=== PATIENT | male | born 1985 | race African-American/Black ===

== ENCOUNTER 2021-05-16 15:00 | Inpatient (IN) | payer MEDICAID, OTHER ==
[~2021-05-16] VITALS: Ht 185.4 cm; Wt 76.9 kg
[2021-05-16] MEDS ORDERED: bumex (15:19)
[2021-05-16] MEDS ORDERED: xarelto (15:19)
[2021-05-16] MEDS ORDERED: ASPIRIN 81MG TABLET PO ONE (16:15)
[2021-05-16] MEDS ORDERED: FUROSEMIDE 40MG/4ML VIAL IV ONE (16:15)
[2021-05-16] MEDS ORDERED: NITROGLYCERIN OINT 1GM/INCH UDPKT TD ONE (16:15)
[2021-05-16 16:17] LABS: BASOPHILS % 1.1 % (0.0-2.0); EOSINOPHILS % 0.5 % (0.0-5.0); HEMATOCRIT. 32.6 % (42.0-52.0); HEMOGLOBIN. 10.8 g/dL (14.0-18.0); LYMPHOCYTES % 24.2 % (20.0-50.0); MEAN CORPUSCULAR HEMOGLOBIN 30.5 pg (28.0-32.0); MEAN CORPUSCULAR VOLUME 92.2 fL (80.0-94.0); MEAN PLATELET VOLUME 7.1 fl (7.4-10.4); MONOCYTES % 7.7 % (2.0-8.0); NEUTROPHILS % 66.5 % (40.0-76.0); PLATELET 263 x1000/uL (130-400); RED BLOOD CELL COUNT 3.54 mill/uL (4.7-6.1); RED CELL DISTRIBUTION WIDTH 19.9 % (11.6-14.6)
[2021-05-16 16:24] LABS: CHLORIDE 93 mEq/L (98-107)
[2021-05-16 16:28] LABS: INR 1.8; PARTIAL THROMBOPLASTIN TIME 32.8 sec (23.4-31.0); PROTHROMBIN TIME 18.8 sec (9.6-11.0)
[2021-05-16] MEDS ORDERED: MORPHINE SULFATE 4 MG/ML CPJ (NOT FOR IM USE) IV STA (16:46)
[2021-05-16] MEDS ORDERED: ONDANSETRON HCL 4MG/2ML INJ IV STA (16:46)
[2021-05-16] MEDS ORDERED: MORPHINE SULFATE 2 MG/ML CPJ (NOT FOR IM USE) IV STA (16:51)
[2021-05-16] MEDS ORDERED: SODIUM CHLORIDE 0.9% 1,000 ML IV ONE (17:00)
[2021-05-16] MEDS ORDERED: POTASSIUM CHLORIDE 20MEQ TABLET SR PO ONE (18:00)
[2021-05-16] MEDS ORDERED: ENOXAPARIN 80MG/0.8ML SYR SUBCUT ONE (18:00)
[2021-05-16] MEDS ORDERED: CLONIDINE 0.1MG TABLET PO PRN (18:45)
[2021-05-16] MEDS ORDERED: IPRATROPIUM/ALBUTEROL 0.5-3(2.5)MG/3ML NEB HHN PRN (18:45)
[2021-05-16] MEDS ORDERED: ACETAMINOPHEN 325MG TABLET PO PRN (18:45)
[2021-05-16] MEDS ORDERED: IOHEXOL-350 100 ML BOTTLE ONE (19:16)
[2021-05-16] MEDS ORDERED: AZITHROMYCIN 500MG/250ML 250 ML IV ONE (19:45)
[2021-05-16] MEDS ORDERED: SODIUM CHLORIDE 0.9% 1000ML BAG (SEPSIS BOLUS) IV ONE (19:45)
[2021-05-16] MEDS ORDERED: CEFTRIAXONE 1 G PREMIX 50 ML IV ONE (19:45)
[2021-05-16] MEDS: RIVAROXABAN 15 MG TABLET PO SCH (20:16)
[2021-05-16 21:09] VITALS: BP 90/68
[2021-05-16] MEDS: ONDANSETRON HCL 4MG/2ML INJ IV PRN (21:26)
[2021-05-16] MEDS ORDERED: HYDROCODONE/ACETAMINOPHEN 5/325MG TABLET PO PRN (21:30)
[2021-05-16] MEDS ORDERED: NALOXONE HCL 0.4MG/ML VIAL IV PRN (21:45)
[2021-05-17 00:30] VITALS: BP 107/75
[2021-05-17] MEDS ORDERED: NALOXONE HCL 0.4MG/ML VIAL IV PRN (01:00)
[2021-05-17] MEDS: HYDROCODONE/ACETAMINOPHEN 5/325MG TABLET PO PRN ×2 (01:59→07:29)
[2021-05-17 04:00] VITALS: BP 101/77
[2021-05-17 07:16] LABS: CHLORIDE 96 mEq/L (98-107)
[2021-05-17 07:18] LABS: BASOPHILS % 0.7 % (0.0-2.0); EOSINOPHILS % 0.1 % (0.0-5.0); HEMATOCRIT. 35.2 % (42.0-52.0); HEMOGLOBIN. 11.3 g/dL (14.0-18.0); LYMPHOCYTES % 27.7 % (20.0-50.0); MEAN CORPUSCULAR HEMOGLOBIN 30.2 pg (28.0-32.0); MEAN CORPUSCULAR VOLUME 94.1 fL (80.0-94.0); MEAN PLATELET VOLUME 7.6 fl (7.4-10.4); MONOCYTES % 6.6 % (2.0-8.0); NEUTROPHILS % 64.9 % (40.0-76.0); PLATELET 258 x1000/uL (130-400); RED BLOOD CELL COUNT 3.74 mill/uL (4.7-6.1); RED CELL DISTRIBUTION WIDTH 19.9 % (11.6-14.6)
[2021-05-17 07:30] LABS: HDL CHOLESTEROL 33 mg/dL (40-59); LDL CHOLESTEROL 38 mg/dL (5-100)
[2021-05-17 08:39] LABS: CLARITY URINE CLEAR (CLEAR); COLOR URINE YELLOW (YELLOW); KETONES URINE NEGATIVE (NEGATIVE); LEUKOCYTE ESTERASE URINE NEGATIVE (NEGATIVE); NITRITE URINE NEGATIVE (NEGATIVE); OCCULT BLOOD URINE NEGATIVE (NEGATIVE); PH URINE 5.5 (4.5-8.0); PROTEIN URINE 1+ (NEGATIVE); SPECIFIC GRAVITY URINE 1.042 (1.005-1.030)
[2021-05-17] MEDS ORDERED: FUROSEMIDE 40MG/4ML VIAL IV SCH (09:00)
[2021-05-17] MEDS: RIVAROXABAN 15 MG TABLET PO SCH ×2 (09:11→17:31)
[2021-05-17 12:00] VITALS: BP 106/80
[2021-05-17] MEDS ORDERED: BUMETANIDE 1MG/4ML VIAL IV SCH (15:00)
[2021-05-17] MEDS: MORPHINE SULFATE 2 MG/ML CPJ (NOT FOR IM USE) IV PRN ×2 (15:10→20:09)
[2021-05-17] MEDS ORDERED: CHOL-36 PO (15:34)
[2021-05-17] MEDS ORDERED: MAGN400T26 PO (15:34)
[2021-05-17] MEDS ORDERED: TOPUD PO (15:34)
[2021-05-17] MEDS ORDERED: IVAB7.5T PO (15:34)
[2021-05-17] MEDS ORDERED: POTA-9 PO (15:34)
[2021-05-17] MEDS ORDERED: DIVA500T3 PO (15:34)
[2021-05-17] MEDS ORDERED: BENZ100C86 PO (15:34)
[2021-05-17] MEDS ORDERED: XAR15 PO (15:34)
[2021-05-17] MEDS ORDERED: BICT1TAB PO (15:34)
[2021-05-17] MEDS ORDERED: MULT-1146 PO (15:34)
[2021-05-17] MEDS ORDERED: BUPR-46 PO (15:34)
[2021-05-17] MEDS ORDERED: LISI-186 PO (15:34)
[2021-05-17] MEDS ORDERED: RIVA20TA PO (15:34)
[2021-05-17] MEDS ORDERED: BUME2TAB34 PO (15:34)
[2021-05-17] MEDS ORDERED: SPIR25TA6 PO (15:34)
[2021-05-17] MEDS ORDERED: FERR325T6 PO (15:34)
[2021-05-17 16:00] VITALS: BP 108/80
[2021-05-17] MEDS ORDERED: AZITHROMYCIN 500 MG in DEXT 5% WATER 250 ML IV SCH (17:00)
[2021-05-17] MEDS: SPIRONOLACTONE 25MG TABLET PO SCH (18:23)
[2021-05-17] MEDS: ATORVASTATIN CALCIUM 40MG TABLET PO SCH (20:09)
[2021-05-17] MEDS: ONDANSETRON HCL 4MG/2ML INJ IV PRN (20:19)
[2021-05-17 20:36] VITALS: BP 111/80
[2021-05-17] MEDS: CEFTRIAXONE 1,000 MG in DEXTROSE 5% WATER 50 ML IV SCH (23:40)
[2021-05-18] VITALS: BP 102/77
[2021-05-18] MEDS: MORPHINE SULFATE 2 MG/ML CPJ (NOT FOR IM USE) IV PRN ×6 (01:06→23:03)
[2021-05-18] MEDS ORDERED: APIX5TAB MT (03:08)
[2021-05-18] MEDS: ONDANSETRON HCL 4MG/2ML INJ IV PRN ×2 (03:15→10:02)
[2021-05-18] MEDS ORDERED: *PATIENT'S OWN MEDICATION STORAGE XX SCH (03:30)
[2021-05-18 04:00] VITALS: BP 103/76
[2021-05-18 08:00] VITALS: BP 106/72
[2021-05-18] MEDS: SPIRONOLACTONE 25MG TABLET PO SCH (08:35)
[2021-05-18] MEDS: ASPIRIN 81MG TABLET PO SCH (08:35)
[2021-05-18] MEDS: LISINOPRIL 2.5MG TABLET PO SCH (09:00)
[2021-05-18] MEDS ORDERED: BUMETANIDE 1MG/4ML VIAL IV SCH ×2 (09:00→18:00)
[2021-05-18] MEDS: METOPROLOL TARTRATE 25MG TABLET PO SCH ×2 (09:00→20:16)
[2021-05-18] MEDS: BUMETANIDE 1MG/4ML VIAL IV SCH ×2 (09:46→17:31)
[2021-05-18] MEDS: ENOXAPARIN 80MG/0.8ML SYR SUBCUT SCH ×2 (09:48→21:44)
[2021-05-18 12:13] VITALS: BP 102/76
[2021-05-18] MEDS: AZITHROMYCIN 500 MG TABLET PO SCH (14:44)
[2021-05-18 16:20] VITALS: BP 104/74
[2021-05-18] MEDS: CEFTRIAXONE 1,000 MG in DEXTROSE 5% WATER 50 ML IV SCH (17:30)
[2021-05-18 20:19] VITALS: BP 107/74
[2021-05-18] MEDS: ATORVASTATIN CALCIUM 40MG TABLET PO SCH (21:44)
[2021-05-19] VITALS (7 sets, daily range): BP systolic 100–114; BP diastolic 69–83
[2021-05-19 00:43] LABS: BASOPHILS % 0.6 % (0.0-2.0); EOSINOPHILS % 0.2 % (0.0-5.0); HEMATOCRIT. 34.9 % (42.0-52.0); HEMOGLOBIN. 11.8 g/dL (14.0-18.0); LYMPHOCYTES % 27.4 % (20.0-50.0); MEAN CORPUSCULAR HEMOGLOBIN 30.9 pg (28.0-32.0); MEAN CORPUSCULAR VOLUME 91.7 fL (80.0-94.0); MEAN PLATELET VOLUME 7.9 fl (7.4-10.4); MONOCYTES % 8.3 % (2.0-8.0); NEUTROPHILS % 63.5 % (40.0-76.0); PLATELET 297 x1000/uL (130-400); RED CELL DISTRIBUTION WIDTH 19.3 % (11.6-14.6)
[2021-05-19 00:54] LABS: PROTHROMBIN TIME 41.3 sec (9.6-11.0)
[2021-05-19 01:00] LABS: CHLORIDE 94 mEq/L (98-107)
[2021-05-19 01:22] LABS: INR 4.3
[2021-05-19] MEDS: MORPHINE SULFATE 2 MG/ML CPJ (NOT FOR IM USE) IV PRN ×4 (03:08→23:10)
[2021-05-19] MEDS: DIPHENHYDRAMINE 50MG/ML VIAL IV PRN (03:35)
[2021-05-19] MEDS: BUMETANIDE 1MG/4ML VIAL IV SCH ×2 (06:25→17:25)
[2021-05-19] MEDS: ASPIRIN 81MG TABLET PO SCH (08:41)
[2021-05-19] MEDS: LISINOPRIL 2.5MG TABLET PO SCH (08:41)
[2021-05-19] MEDS: SPIRONOLACTONE 25MG TABLET PO SCH (08:41)
[2021-05-19] MEDS: METOPROLOL TARTRATE 25MG TABLET PO SCH ×2 (08:42→20:33)
[2021-05-19] MEDS: ENOXAPARIN 80MG/0.8ML SYR SUBCUT SCH (08:42)
[2021-05-19] MEDS: ONDANSETRON HCL 4MG/2ML INJ IV PRN ×2 (08:54→19:26)
[2021-05-19] MEDS: AZITHROMYCIN 500 MG TABLET PO SCH (10:38)
[2021-05-19] MEDS ORDERED: METOLAZONE 5MG TABLET PO NR (12:30)
[2021-05-19] MEDS ORDERED: BUMETANIDE 1MG/4ML VIAL IV NR (13:00)
[2021-05-19] MEDS: IVABRADINE 7.5 MG PO SCH ×2 (15:08→20:48)
[2021-05-19] MEDS: BIKTARVY PO SCH (15:08)
[2021-05-19] MEDS: CEFTRIAXONE 1,000 MG in DEXTROSE 5% WATER 50 ML IV SCH (17:24)
[2021-05-19 19:44] LABS: CHLORIDE 94 mEq/L (98-107)
[2021-05-19 19:47] LABS: PROTHROMBIN TIME 40.1 sec (9.6-11.0)
[2021-05-19 21:08] LABS: INR 4.2
[2021-05-20] VITALS (7 sets, daily range): BP systolic 100–105; BP diastolic 65–78
[2021-05-20] MEDS: MORPHINE SULFATE 2 MG/ML CPJ (NOT FOR IM USE) IV PRN ×4 (05:02→20:36)
[2021-05-20] MEDS: BUMETANIDE 1MG/4ML VIAL IV SCH ×2 (05:02→17:50)
[2021-05-20 06:07] LABS: INR 3.4
[2021-05-20 06:14] LABS: CHLORIDE 94 mEq/L (98-107)
[2021-05-20] MEDS: METOPROLOL TARTRATE 25MG TABLET PO SCH ×2 (09:00→20:30)
[2021-05-20] MEDS: LISINOPRIL 2.5MG TABLET PO SCH (09:00)
[2021-05-20] MEDS: SPIRONOLACTONE 25MG TABLET PO SCH (09:27)
[2021-05-20] MEDS: IVABRADINE 7.5 MG PO SCH ×2 (09:27→17:51)
[2021-05-20] MEDS: BIKTARVY PO SCH (09:27)
[2021-05-20] MEDS: AZITHROMYCIN 500 MG TABLET PO SCH (10:17)
[2021-05-20] MEDS ORDERED: POTASSIUM CHLORIDE 20MEQ TABLET SR PO NR (11:30)
[2021-05-20] MEDS: CEFTRIAXONE 1,000 MG in DEXTROSE 5% WATER 50 ML IV SCH (17:51)
[2021-05-20] MEDS: ENOXAPARIN 80MG/0.8ML SYR SUBCUT SCH ×2 (20:18→22:24)
[2021-05-21] VITALS: BP 103/72
[2021-05-21] MEDS: MORPHINE SULFATE 2 MG/ML CPJ (NOT FOR IM USE) IV PRN ×5 (00:41→22:21)
[2021-05-21 04:00] VITALS: BP 100/74
[2021-05-21 06:01] LABS: D-DIMER 4.04 mg/L FEU (<0.50); PARTIAL THROMBOPLASTIN TIME 34.1 sec (23.4-31.0)
[2021-05-21] MEDS: BUMETANIDE 1MG/4ML VIAL IV SCH ×2 (06:04→17:38)
[2021-05-21 08:00] VITALS: BP 100/69
[2021-05-21] MEDS: METOPROLOL TARTRATE 25MG TABLET PO SCH ×2 (08:46→21:00)
[2021-05-21] MEDS: LISINOPRIL 2.5MG TABLET PO SCH (08:47)
[2021-05-21] MEDS: BIKTARVY PO SCH (09:30)
[2021-05-21] MEDS: SPIRONOLACTONE 25MG TABLET PO SCH (09:30)
[2021-05-21] MEDS: IVABRADINE 7.5 MG PO SCH ×2 (09:31→17:38)
[2021-05-21] MEDS: ENOXAPARIN 80MG/0.8ML SYR SUBCUT SCH ×2 (09:32→22:21)
[2021-05-21 12:48] VITALS: BP 91/70
[2021-05-21 16:00] VITALS: BP 94/71
[2021-05-21] MEDS ORDERED: PHYTONADIONE 10MG/ML AMP SUBCUT NR (18:15)
[2021-05-21] MEDS: ONDANSETRON HCL 4MG/2ML INJ IV PRN (18:42)
[2021-05-21 20:00] VITALS: BP 101/73
[2021-05-22] VITALS: BP 92/74
[2021-05-22] MEDS: DIPHENHYDRAMINE 50MG/ML VIAL IV PRN (00:46)
[2021-05-22] MEDS: MORPHINE SULFATE 2 MG/ML CPJ (NOT FOR IM USE) IV PRN ×2 (03:13→10:11)
[2021-05-22 04:00] VITALS: BP 100/72
[2021-05-22] MEDS: BUMETANIDE 1MG/4ML VIAL IV SCH (06:06)
[2021-05-22 06:48] LABS: INR 1.5; PROTHROMBIN TIME 15.4 sec (9.6-11.0)
[2021-05-22 08:00] VITALS: BP 111/61
[2021-05-22] MEDS ORDERED: LISI2.5T47 PO (10:02)
[2021-05-22] MEDS ORDERED: APIX5TAB MT (10:02)
[2021-05-22] MEDS: LISINOPRIL 2.5MG TABLET PO SCH (10:07)
[2021-05-22] MEDS: SPIRONOLACTONE 25MG TABLET PO SCH (10:08)
[2021-05-22] MEDS: BIKTARVY PO SCH (10:09)
[2021-05-22] MEDS: METOPROLOL TARTRATE 25MG TABLET PO SCH (10:09)
[2021-05-22] MEDS: IVABRADINE 7.5 MG PO SCH (10:09)
[2021-05-22] MEDS: ENOXAPARIN 80MG/0.8ML SYR SUBCUT SCH (10:10)
[2021-05-22 12:00] VITALS: BP 108/69
[2021-05-22 15:02] VITALS: BP 111/70
[2021-05-22 16:00] VITALS: BP 105/65
[2021-05-22] MEDS ORDERED: BUMETANIDE 1MG TABLET PO SCH (18:00)
[2021-06-05] MEDS ORDERED: RIVAROXABAN 20 MG TABLET PO SCH (17:00)
== END 2021-05-22 14:55 | disposition home or self-care (01) | DRG 720 ==
LOC: ER 15:00 → 6WST 18:19 → ENRESERV 20:38 → 6WST 05-18 07:52
PROVIDERS: ADMIT Internal Medicine; ATTEND Internal Medicine
DX: A41.9 Sepsis, unspecified organism (principal); J96.01 Acute respiratory failure with hypoxia; I50.23 Acute on chronic systolic (congestive) heart failure; I26.93 Single subsegmental thrombotic pulmonary embolism without acute cor pulmonale; J15.9 Unspecified bacterial pneumonia; I27.82 Chronic pulmonary embolism; E44.0 Moderate protein-calorie malnutrition; R18.8 Other ascites; I11.0 Hypertensive heart disease with heart failure; I50.82 Biventricular heart failure; Z20.822 Contact with and (suspected) exposure to COVID-19; E87.6 Hypokalemia; I25.10 Atherosclerotic heart disease of native coronary artery without angina pectoris; D64.9 Anemia, unspecified; F31.9 Bipolar disorder, unspecified; F17.210 Nicotine dependence, cigarettes, uncomplicated; I36.1 Nonrheumatic tricuspid (valve) insufficiency; I34.0 Nonrheumatic mitral (valve) insufficiency; K74.60 Unspecified cirrhosis of liver; Z68.22 Body mass index [BMI] 22.0-22.9, adult; Z79.01 Long term (current) use of anticoagulants
CPT/HCPCS: 36415; 71045; 71275; 74176; 76705; 80048; 80053; 80061; 81003; 83605; 83880; 84145; 84443; 84484; 85025; 85379; 85384; 86850; 86900; 87426; 93005; 93306; 93970; 99291; C1893; J0456; J0696; J1200; J1650; J1940; J2270; J2405; J3430; J3490; J7030; J7040; J7060; Q9967

== ENCOUNTER 2021-05-31 13:45 | Inpatient (IN) | payer OTHER ==
[~2021-05-31] VITALS: Ht 180.3 cm; Wt 83.0 kg
[~2021-05-31 13:45] MED LIST: APIX5TAB MT; BENZ100C86 PO; BICT1TAB PO; BUME2TAB34 PO; BUPR-46 PO; CALCIUM CHLORIDE 1GM/10ML SYR IV ONE; CHOL-36 PO; DEXTROSE 50% WATER 50ML SYRINGE IV ONE; DIVA500T3 PO; FERR325T6 PO; IVAB7.5T PO; LISI2.5T47 PO; MAGN400T26 PO; MAGNESIUM SULFATE 4G IN WATER 100ML PREMIX IV ONE; MULT-1146 PO; POTA-9 PO; SODIUM BICARBONATE 8.4% 1 MEQ/ML 50ML SYR IV ONE; SPIR25TA6 PO
[2021-05-31] MEDS ORDERED: MORPHINE SULFATE 4 MG/ML CPJ (NOT FOR IM USE) IV NR (14:30)
[2021-05-31] MEDS ORDERED: MORPHINE SULFATE 2 MG/ML CPJ (NOT FOR IM USE) IV NR ×2 (14:45→19:00)
[2021-05-31 15:00] LABS: BASOPHILS % 0.8 % (0.0-2.0); EOSINOPHILS % 0.4 % (0.0-5.0); HEMOGLOBIN. 11.3 g/dL (14.0-18.0); MEAN CORPUSCULAR HEMOGLOBIN 30.8 pg (28.0-32.0); MEAN CORPUSCULAR VOLUME 92.9 fL (80.0-94.0); MONOCYTES % 7.7 % (2.0-8.0); NEUTROPHILS % 65.1 % (40.0-76.0); PLATELET 281 x1000/uL (130-400); RED BLOOD CELL COUNT 3.66 mill/uL (4.7-6.1); RED CELL DISTRIBUTION WIDTH 17.6 % (11.6-14.6)
[2021-05-31 15:09] LABS: CHLORIDE 99 mEq/L (98-107)
[2021-05-31 15:12] LABS: BG BASE EXCESS 4.9 mmol/L (-2.0-2.0); BG CARBOXYHEMOGLOBIN 1.5 % (0.5-1.5); BG DEOXYHEMOGLOBIN 3.2 % (0.0-5.0); BG FRACTION INSPIRED OXYGEN 21; BG HCO3 ACT 27.4 mmol/L (22.0-26.0); BG METHEMOGLOBIN 0.2 % (0.0-1.5); BG OXYGEN SATURATION 96.7 % (92.0-98.5); BG OXYHEMOGLOBIN 95.1 % (94.0-97.0); BG PCO2 33.6 mmHg (35.0-45.0); BG SAMPLE SITE RIGHT RADIAL; BG TOTAL HEMOGLOBIN 12.3 g/dL (12.0-18.0); BG VENT MODE ROOM AIR
[2021-05-31 15:13] LABS: ETHANOL BLOOD < 10 mg/dL; INR 2.5; PROTHROMBIN TIME 25.1 sec (9.6-11.0)
[2021-05-31] MEDS: KCL 20MEQ/100ML PREMIX 100 ML IV NR ×2 (16:15→18:17)
[2021-05-31] MEDS ORDERED: AZITHROMYCIN 500MG/250ML 250 ML IV NR (16:15)
[2021-05-31] MEDS ORDERED: POTASSIUM CHLORIDE 20MEQ TABLET SR PO NR (16:30)
[2021-05-31 17:02] LABS: CLARITY URINE CLEAR (CLEAR); COLOR URINE YELLOW (YELLOW); KETONES URINE NEGATIVE (NEGATIVE); LEUKOCYTE ESTERASE URINE NEGATIVE (NEGATIVE); NITRITE URINE NEGATIVE (NEGATIVE); OCCULT BLOOD URINE NEGATIVE (NEGATIVE); PH URINE 5.5 (4.5-8.0); PROTEIN URINE NEGATIVE (NEGATIVE); SPECIFIC GRAVITY URINE 1.009 (1.005-1.030)
[2021-05-31 17:26] LABS: *AMPHETAMINES SCREEN URINE NEGATIVE (NEGATIVE); *BARBITURATES SCREEN URINE NEGATIVE (NEGATIVE); *BENZODIAZEPINES SCREEN URINE NEGATIVE (NEGATIVE); *COCAINE SCREEN URINE NEGATIVE (NEGATIVE); METHADONE URINE SCREEN NEGATIVE (NEGATIVE); OPIATES URINE SCREEN PRESUMTIVE POSITIVE (NEGATIVE); PHENCYCLIDINE URINE SCREEN NEGATIVE (NEGATIVE)
[2021-05-31 17:42] LABS: CANNABINOID URINE SCREEN PRESUMTIVE POSITIVE (NEGATIVE)
[2021-05-31] MEDS ORDERED: MORPHINE SULFATE 4 MG/ML CPJ (NOT FOR IM USE) IV ONE (18:30)
[2021-05-31] MEDS ORDERED: IPRATROPIUM/ALBUTEROL 0.5-3(2.5)MG/3ML NEB HHN PRN (19:30)
[2021-05-31] MEDS ORDERED: ACETAMINOPHEN 325MG TABLET PO PRN (19:30)
[2021-05-31] MEDS ORDERED: DIPHENHYDRAMINE 50MG/ML VIAL IV PRN (19:30)
[2021-05-31] MEDS ORDERED: ONDANSETRON HCL 4MG/2ML INJ IV PRN (19:30)
[2021-05-31] MEDS ORDERED: CLONIDINE 0.1MG TABLET PO PRN (19:30)
[2021-05-31] MEDS ORDERED: NALOXONE HCL 0.4MG/ML VIAL IV PRN (19:45)
[2021-05-31] MEDS ORDERED: FUROSEMIDE 40MG/4ML VIAL IV SCH (19:45)
[2021-05-31] MEDS ORDERED: CEFTRIAXONE 1 G PREMIX 50 ML IV SCH (20:00)
[2021-05-31] MEDS ORDERED: MORPHINE SULFATE 2 MG/ML CPJ (NOT FOR IM USE) IV PRN (20:00)
[2021-05-31] MEDS ORDERED: AMIODARONE HCL 900 MG in DEXT 5% WATER 482 ML IV STA (20:02)
[2021-05-31] MEDS ORDERED: PROPOFOL 10MG/ML 100ML 100 ML IV STA (20:04)
[2021-05-31] MEDS ORDERED: MAGNESIUM 2 G PREMIX 50 ML IV ONE (20:15)
[2021-05-31] MEDS ORDERED: KCL 20MEQ/100ML PREMIX 100 ML IV ONE (20:15)
[2021-05-31] MEDS ORDERED: AMIODARONE HCL 900 MG in DEXT 5% WATER 482 ML IV NR (20:15)
[2021-05-31 20:56] LABS: BG BASE EXCESS -6.6 mmol/L (-2.0-2.0); BG CARBOXYHEMOGLOBIN 0.6 % (0.5-1.5); BG DEOXYHEMOGLOBIN 0.3 % (0.0-5.0); BG FRACTION INSPIRED OXYGEN 100; BG HCO3 ACT 17.7 mmol/L (22.0-26.0); BG METHEMOGLOBIN 0.4 % (0.0-1.5); BG OXYGEN SATURATION 99.7 % (92.0-98.5); BG OXYHEMOGLOBIN 98.7 % (94.0-97.0); BG PCO2 31.4 mmHg (35.0-45.0); BG PH 7.369 (7.350-7.450); BG PO2 562.3 mmHg (75.0-100.0); BG TOTAL HEMOGLOBIN 11.8 g/dL (12.0-18.0); BG TOTAL RESPIRATORY RATE 24 b/min; BG VENT MODE VENT - AC
[2021-05-31 20:58] LABS: BG SAMPLE SITE RIGHT RADIAL
[2021-06-01] VITALS (97 sets, daily range): BP systolic 36–162; BP diastolic 15–118
[2021-06-01 00:47] LABS: BASOPHILS % 0.4 % (0.0-2.0); EOSINOPHILS % 0.1 % (0.0-5.0); HEMATOCRIT. 41.9 % (42.0-52.0); HEMOGLOBIN. 13.1 g/dL (14.0-18.0); LYMPHOCYTES % 13.2 % (20.0-50.0); MEAN CORPUSCULAR HEMOGLOBIN 30.5 pg (28.0-32.0); MEAN CORPUSCULAR VOLUME 97.8 fL (80.0-94.0); MEAN PLATELET VOLUME 7.3 fl (7.4-10.4); NEUTROPHILS % 80.3 % (40.0-76.0); PLATELET 305 x1000/uL (130-400); RED BLOOD CELL COUNT 4.28 mill/uL (4.7-6.1); RED CELL DISTRIBUTION WIDTH 18.4 % (11.6-14.6)
[2021-06-01 00:59] LABS: CHLORIDE 99 mEq/L (98-107)
[2021-06-01] MEDS ORDERED: NOREPINEPHRINE 8MG/250ML PMX 250 ML IV PRN (01:00)
[2021-06-01] MEDS: NOREPINEPHRINE 8 MG in DEXTROSE 5% WATER 250 ML IV PRN ×3 (01:38→15:11)
[2021-06-01] MEDS ORDERED: AMIODARONE HCL 900 MG in DEXT 5% WATER 482 ML IV PRN (02:00)
[2021-06-01] MEDS: PROPOFOL 10MG/ML 100ML 100 ML IV PRN ×3 (02:11→09:01)
[2021-06-01 03:06] LABS: HEPATITIS B SURFACE AB 145.2 mIU/mL
[2021-06-01 03:17] LABS: HEPATITIS B SURFACE ANTIGEN NEGATIVE
[2021-06-01] MEDS ORDERED: FENTANYL CITRATE/PF 2,500 MCG in SODIUM CHLORIDE 0.9% 200 ML IV PRN (03:30)
[2021-06-01] MEDS: PHENYLEPHRINE 100 MG in DEXT 5% WATER 240 ML IV PRN ×2 (03:45→15:16)
[2021-06-01] MEDS ORDERED: SODIUM CHLORIDE 0.9% 1,000 ML IV SCH (05:15)
[2021-06-01] MEDS ORDERED: ALBUMIN HUMAN 25GM/100ML (25%) IV SCH (05:15)
[2021-06-01] MEDS ORDERED: SODIUM CHLORIDE 0.9% 1000ML BAG (SEPSIS BOLUS) IV ONE (05:15)
[2021-06-01 05:53] LABS: HEMATOCRIT 36.9 % (42.0-52.0); HEMOGLOBIN 11.6 g/dL (14.0-18.0); MEAN CORPUSCULAR HEMOGLOBIN 30.2 pg (28.0-32.0); MEAN CORPUSCULAR VOLUME 95.9 fL (80.0-94.0); PLATELET 322 x1000/uL (130-400); RED BLOOD CELL COUNT 3.85 mill/uL (4.7-6.1); RED CELL DISTRIBUTION WIDTH 18.1 % (11.6-14.6)
[2021-06-01] MEDS ORDERED: POTASSIUM CHLORIDE INJ 40 MEQ in DEXT 5% WATER 250 ML IV SCH (06:00)
[2021-06-01 06:01] LABS: CHLORIDE 98 mEq/L (98-107)
[2021-06-01 06:08] LABS: LDL CHOLESTEROL 54 mg/dL (5-100)
[2021-06-01 06:11] LABS: HDL CHOLESTEROL 36 mg/dL (40-59)
[2021-06-01] MEDS ORDERED: RIVA20TA PO (07:47)
[2021-06-01] MEDS ORDERED: TOPUD PO (07:49)
[2021-06-01] MEDS ORDERED: *PATIENT'S OWN MEDICATION STORAGE XX SCH (08:45)
[2021-06-01 08:48] LABS: BG BASE EXCESS -10.6 mmol/L (-2.0-2.0); BG CARBOXYHEMOGLOBIN 0.6 % (0.5-1.5); BG DEOXYHEMOGLOBIN 0.8 % (0.0-5.0); BG FRACTION INSPIRED OXYGEN 40; BG HCO3 ACT 13.3 mmol/L (22.0-26.0); BG METHEMOGLOBIN 0.1 % (0.0-1.5); BG OXYGEN SATURATION 99.2 % (92.0-98.5); BG OXYHEMOGLOBIN 98.5 % (94.0-97.0); BG PCO2 24.8 mmHg (35.0-45.0); BG PH 7.346 (7.350-7.450); BG SAMPLE SITE LEFT RADIAL; BG TOTAL HEMOGLOBIN 12.9 g/dL (12.0-18.0); BG VENT MODE VENT - AC
[2021-06-01] MEDS ORDERED: AZITHROMYCIN 500MG/250ML 250 ML IV SCH ×2 (09:00→11:00)
[2021-06-01] MEDS ORDERED: PANTOPRAZOLE SODIUM 40 MG/VIAL IV SCH (09:00)
[2021-06-01] MEDS ORDERED: EPINEPHRINE 0.1MG/ML (1:10,000) 10ML SYR ONE (09:01)
[2021-06-01] MEDS ORDERED: SODIUM BICARBONATE 8.4% 1 MEQ/ML 50ML SYR IV ONE (09:01)
[2021-06-01] MEDS ORDERED: NALOXONE HCL 0.4 MG/ML 1ML VIAL ONE (09:01)
[2021-06-01] MEDS ORDERED: DEXTROSE 50% WATER 50ML SYRINGE IV ONE (09:01)
[2021-06-01] MEDS ORDERED: SPIRONOLACTONE 25MG TABLET PO SCH (10:00)
[2021-06-01] MEDS: DEXTROSE 50% WATER 50ML SYRINGE IV PRN ×2 (10:15→11:55)
[2021-06-01] MEDS ORDERED: POTASSIUM CHLORIDE 20MEQ/PACKET PO NR (10:30)
[2021-06-01] MEDS ORDERED: SODIUM BICARBONATE 8.4% 1 MEQ/ML 50ML SYR IV NR (11:00)
[2021-06-01] MEDS ORDERED: AZITHROMYCIN 500MG in DEXTROSE 5% WATER 250ML IV SCH (11:30)
[2021-06-01] MEDS ORDERED: SODIUM BICARBONATE 150 MEQ in DEXTROSE 5% WATER 1000 ML IV SCH (12:00)
[2021-06-01] MEDS ORDERED: KCL 20MEQ/100ML PREMIX 100 ML IV SCH (13:00)
[2021-06-01] MEDS ORDERED: VASOPRESSIN 20 UNIT in SODIUM CHLORIDE 0.9% 99 ML IV PRN (13:00)
[2021-06-01] MEDS ORDERED: EPINEPHRINE 10 MG in SODIUM CHLORIDE 0.9% 240 ML IV PRN (13:30)
[2021-06-01] MEDS ORDERED: DOPAMINE 400MG/250ML PREMIX 250 ML IV PRN (13:30)
[2021-06-01] MEDS ORDERED: HEPARIN 25,000 UNITS PREMIX 250 ML IV PRN (14:00)
[2021-06-01] MEDS ORDERED: HEPARIN 5000 UNITS/ML VIAL IV SCH (14:00)
[2021-06-01] MEDS ORDERED: HEPARIN 5000 UNITS/ML VIAL IV PRN ×2 (14:00)
[2021-06-01] MEDS ORDERED: MORPHINE SULFATE 250 MG in DEXT 5% WATER 240 ML IV PRN (17:00)
[2021-06-01] MEDS ORDERED: IPRATROPIUM/ALBUTEROL 0.5-3(2.5)MG/3ML NEB HHN SCH (18:00)
[2021-06-01] MEDS ORDERED: CEFTRIAXONE 1,000 MG in DEXTROSE 5% WATER 50 ML IV SCH (21:00)
[2021-06-03 05:09] LABS: HIV 1 ABS Positive (Negative); HIV 2 ABS Negative (Negative); HIV SCREEN 4G Reactive (Non Reactive); INTERPRETATION HIV-1 Positive (.)
== END 2021-06-01 19:26 | DRG 720 ==
LOC: ER 13:45 → CVICU 18:07 → EDBEDREQTM 18:13 → EDBEDREQ 18:13 → EDBEDREQSVC 20:17 → EDBEDREQTM 20:17 → EDBEDREQ 20:17 → ENRESERV 22:37 → ER 23:51
PROVIDERS: ADMIT Internal Medicine; ATTEND Internal Medicine
PROC: 06HY33Z Insertion of Infusion Device into Lower Vein, Percutaneous Approach (ICD-10-PCS; principal; 2021-05-31)
PROC: 5A1935Z Respiratory Ventilation, Less than 24 Consecutive Hours (ICD-10-PCS; 2021-05-31)
PROC: 0BH17EZ Insertion of Endotracheal Airway into Trachea, Via Natural or Artificial Opening (ICD-10-PCS; 2021-05-31)
PROC: 5A12012 Performance of Cardiac Output, Single, Manual (ICD-10-PCS; 2021-06-01)
PROC: 5A2204Z Restoration of Cardiac Rhythm, Single (ICD-10-PCS; 2021-06-01)
DX: A41.9 Sepsis, unspecified organism (principal); J96.01 Acute respiratory failure with hypoxia; I46.9 Cardiac arrest, cause unspecified; R65.21 Severe sepsis with septic shock; E44.0 Moderate protein-calorie malnutrition; I50.23 Acute on chronic systolic (congestive) heart failure; D68.9 Coagulation defect, unspecified; E87.2 Acidosis; J18.9 Pneumonia, unspecified organism; I21.A1 Myocardial infarction type 2; N17.9 Acute kidney failure, unspecified; K74.60 Unspecified cirrhosis of liver; E87.6 Hypokalemia; I36.1 Nonrheumatic tricuspid (valve) insufficiency; F17.200 Nicotine dependence, unspecified, uncomplicated; I49.01 Ventricular fibrillation; F31.9 Bipolar disorder, unspecified; B19.20 Unspecified viral hepatitis C without hepatic coma; I25.10 Atherosclerotic heart disease of native coronary artery without angina pectoris; I34.0 Nonrheumatic mitral (valve) insufficiency; E03.8 Other specified hypothyroidism; E16.2 Hypoglycemia, unspecified; F64.9 Gender identity disorder, unspecified; R18.8 Other ascites; I11.0 Hypertensive heart disease with heart failure; I50.82 Biventricular heart failure; Z20.822 Contact with and (suspected) exposure to COVID-19; Z53.20 Procedure and treatment not carried out because of patient's decision for unspecified reasons; Z66 Do not resuscitate; Z86.711 Personal history of pulmonary embolism; Z79.899 Other long term (current) drug therapy; Z82.49 Family history of ischemic heart disease and other diseases of the circulatory system; Z71.6 Tobacco abuse counseling; Z68.25 Body mass index [BMI] 25.0-25.9, adult; Z79.01 Long term (current) use of anticoagulants; Z98.61 Coronary angioplasty status; Z86.718 Personal history of other venous thrombosis and embolism
CPT/HCPCS: 36415; 36600; 71045; 74176; 80048; 80053; 80061; 80305; 80320; 81003; 82375; 82805; 82962; 83605; 83735; 83880; 84145; 84443; 84484; 85025; 85027; 86140; 86701; 86702; 86850; 86900; 87070; 87389; 87426; 93005; 93306; 93970; 94002; 94003; 99285; C9113; J0282; J0456; J0696; J1265; J2270; J2310; J2370; J2704; J3475; J3480; J3490; J7050; J7060; J7070; P9047; A4315; G0480